=== PATIENT | male | born 1950 | race Two or more races ===

== ENCOUNTER 2022-08-19 14:12 | Inpatient (IN) | payer OTHER ==
[~2022-08-19] VITALS: Ht 162.6 cm; Wt 80.8 kg
[2022-08-19 15:52] LABS: Basophils # (auto) 0.1 10 ^3/uL (0-0.2); Eosinophils # (auto) 0.1 10 ^3/uL (0-0.8); Eosinophils % (auto) 1.5 % (0.0-7.0); Hematocrit 40.7 % (41.0-53.0); Hemoglobin 14.4 g/dL (13.5-17.5); Lymphocytes # (auto) 2.6 10 ^3/uL (0.4-5.4); Lymphocytes % (auto) 30.2 % (10.0-50.0); Mean Corpuscular Hgb Conc. 35.3 g/dL (32.0-36.0); Mean Corpuscular Volume 93.7 fL (80.0-100.0); Monocytes # (auto) 0.5 10 ^3/uL (0-1.3); Monocytes % (auto) 6.2 % (0.0-12.0); Neutrophils # (auto) 5.2 10 ^3/uL (1.6-8.6); Neutrophils % (auto) 61.1 % (37.0-80.0); Nucleated Red Blood Cells % 0.1 %; Red Blood Cells 4.35 10^6/uL (4.5-5.90); Red Cell Distribution Width 14.4 % (11.8-14.3); White Blood Cell 8.5 10^3/uL (4.4-10.8)
[2022-08-19 16:13] LABS: Calcium 9.1 mg/dL (8.5-10.1); Magnesium 2.4 mg/dL (1.6-2.6); Potassium 3.8 mmol/L (3.5-5.1)
[2022-08-19 16:19] LABS: BUN/Creatinine Ratio 10.8 (10.0-20.0); Bilirubin, Total 0.3 mg/dL (0.2-1.0); Total Protein 6.7 g/dL (6.4-8.2)
[2022-08-19] MEDS ORDERED: cefTRIAXone 1GM/50ML D5W 50 ML IV ONE (17:15)
[2022-08-19] MEDS ORDERED: DEXTROSE (50%) 50ML SYRG IV PRN (18:00)
[2022-08-19] MEDS ORDERED: ACETAMINOPHEN 325 MG TAB PO PRN (18:00)
[2022-08-19] MEDS ORDERED: AZITHROMYCIN 500MG/ 250ML 250 ML IV ONE (18:00)
[2022-08-19] MEDS ORDERED: HYDROcodone-ACET 5/325MG TAB PO PRN (18:00)
[2022-08-19] MEDS ORDERED: AMLO1TAB23 PO (18:19)
[2022-08-19] MEDS ORDERED: BISO5TAB44 PO (18:19)
[2022-08-19] MEDS ORDERED: BUSP5TAB51 PO (18:19)
[2022-08-19] MEDS ORDERED: ESCI1TAB36 PO (18:19)
[2022-08-19] MEDS ORDERED: TERA1CAP50 PO (18:19)
[2022-08-19] MEDS ORDERED: LOSA100T58 PO (18:19)
[2022-08-19] MEDS ORDERED: ROSU1TAB12 PO (18:19)
[2022-08-19] MEDS ORDERED: PANTOPRAZOLE 40 MG/10 ML VIAL INJ IV ONE (18:30)
[2022-08-19 18:48] LABS: INR 0.9 (0.9-1.15)
[2022-08-19] MEDS: InsuLIN REG 1unit/0.01ml Soln (100units/ml) SC SCH (22:00)
[2022-08-19 23:00] LABS: Urine Bacteria NONE SEEN /hpf (None Seen); Urine Blood Negative /uL (Negative); Urine Specific Gravity 1.018 (1.001-1.035); Urine WBC 26 /hpf (0 - 3)
[2022-08-19] MEDS: ACCU-CHEK COMFORT CURVE STRIP VI SCH (23:01)
[2022-08-20 05:18] LABS: Basophils # (auto) 0 10 ^3/uL (0-0.2); Basophils % (auto) 0.5 % (0.0-2.0); Eosinophils # (auto) 0.2 10 ^3/uL (0-0.8); Hematocrit 40.4 % (41.0-53.0); Hemoglobin 13.9 g/dL (13.5-17.5); Lymphocytes # (auto) 2.3 10 ^3/uL (0.4-5.4); Lymphocytes % (auto) 32.9 % (10.0-50.0); Mean Corpuscular Hemoglobin 32.7 pg (28.0-32.0); Mean Corpuscular Hgb Conc. 34.4 g/dL (32.0-36.0); Mean Corpuscular Volume 95.2 fL (80.0-100.0); Monocytes # (auto) 0.6 10 ^3/uL (0-1.3); Monocytes % (auto) 8.9 % (0.0-12.0); Neutrophils # (auto) 3.9 10 ^3/uL (1.6-8.6); Neutrophils % (auto) 54.7 % (37.0-80.0); Red Blood Cells 4.25 10^6/uL (4.5-5.90); Red Cell Distribution Width 14.1 % (11.8-14.3); White Blood Cell 7.1 10^3/uL (4.4-10.8)
[2022-08-20 05:31] LABS: Potassium 3.5 mmol/L (3.5-5.1)
[2022-08-20 05:36] LABS: Albumin 3.3 g/dL (3.4-5.0); BUN/Creatinine Ratio 13.6 (10.0-20.0); Bilirubin, Total 0.5 mg/dL (0.2-1.0); Calcium 8.3 mg/dL (8.5-10.1); Total Protein 5.9 g/dL (6.4-8.2)
[2022-08-20] MEDS: ACCU-CHEK COMFORT CURVE STRIP VI SCH ×4 (06:49→21:57)
[2022-08-20] MEDS: InsuLIN REG 1unit/0.01ml Soln (100units/ml) SC SCH ×4 (06:49→21:59)
[2022-08-20] MEDS: amLODIPine BESYLATE 5 MG TAB PO SCH (10:00)
[2022-08-20] MEDS ORDERED: TERAZOSIN HCL 1 MG CAP PO SCH (10:00)
[2022-08-20] MEDS: ATENOLOL 25 MG TAB PO SCH (10:00)
[2022-08-20] MEDS ORDERED: PATIENTS OWN MEDICATION (Losartan Potassium 1 TAB) PO SCH (10:00)
[2022-08-20 10:56] VITALS: BP 144/96
[2022-08-20] MEDS ORDERED: REGADENOSON 0.4 MG/5 ML SYRG IV ONE ×2 (11:00→11:15)
[2022-08-20 12:04] VITALS: BP 167/99
[2022-08-20 12:40] VITALS: BP 167/99
[2022-08-20] MEDS: CITALOPRAM HYDROBR 20 MG TAB PO SCH (13:00)
[2022-08-20] MEDS: LOSARTAN POTASSIUM 50 MG TAB PO SCH (13:07)
[2022-08-20] MEDS: ATORVASTATIN 20 MG TAB PO SCH (13:08)
[2022-08-20] MEDS: MORPHINE SULFATE INJ 2 MG/ml SYRG IV PRN ×2 (14:06→17:26)
[2022-08-20] MEDS: PANTOPRAZOLE 40 MG/10 ML VIAL INJ IV SCH (14:21)
[2022-08-20 17:00] VITALS: BP 153/96
[2022-08-20] MEDS: HYDROcodone-ACET 10/325MG TAB PO PRN (18:32)
[2022-08-20 22:00] VITALS: BP 143/89
[2022-08-21 05:00] VITALS: BP 150/80
[2022-08-21] MEDS: ACCU-CHEK COMFORT CURVE STRIP VI SCH ×4 (06:18→21:05)
[2022-08-21] MEDS: InsuLIN REG 1unit/0.01ml Soln (100units/ml) SC SCH ×4 (06:22→21:21)
[2022-08-21 06:25] LABS: BUN/Creatinine Ratio 12.7 (10.0-20.0); Calcium 8.9 mg/dL (8.5-10.1); Potassium 3.7 mmol/L (3.5-5.1)
[2022-08-21 09:00] VITALS: BP 177/92
[2022-08-21] MEDS: MORPHINE SULFATE INJ 2 MG/ml SYRG IV PRN (10:42)
[2022-08-21] MEDS: CITALOPRAM HYDROBR 20 MG TAB PO SCH (10:46)
[2022-08-21] MEDS: LOSARTAN POTASSIUM 50 MG TAB PO SCH (10:47)
[2022-08-21] MEDS: TERAZOSIN HCL 1 MG CAP PO SCH (10:48)
[2022-08-21] MEDS: ATORVASTATIN 20 MG TAB PO SCH (10:48)
[2022-08-21] MEDS: amLODIPine BESYLATE 5 MG TAB PO SCH (10:49)
[2022-08-21] MEDS: ATENOLOL 25 MG TAB PO SCH (10:50)
[2022-08-21] MEDS: PANTOPRAZOLE 40 MG/10 ML VIAL INJ IV SCH (10:50)
[2022-08-21 13:00] VITALS: BP 145/83
[2022-08-21] MEDS: HYDROcodone-ACET 10/325MG TAB PO PRN ×2 (16:21→20:55)
[2022-08-21 17:00] VITALS: BP 147/89
[2022-08-21 20:00] VITALS: BP 134/78
[2022-08-21 22:00] VITALS: BP 134/78
[2022-08-22 05:00] VITALS: BP 163/86
[2022-08-22] MEDS: ACCU-CHEK COMFORT CURVE STRIP VI SCH ×4 (06:01→21:42)
[2022-08-22] MEDS: InsuLIN REG 1unit/0.01ml Soln (100units/ml) SC SCH ×3 (06:01→21:40)
[2022-08-22] MEDS ORDERED: GLYCOPYRROLATE 0.2 MG/ML 1ML VIAL ONE (07:59)
[2022-08-22] MEDS ORDERED: fentaNYL CITRATE 100 MCG/2 ML VL ONE (07:59)
[2022-08-22] MEDS ORDERED: MIDAZOLAM HCL 2MG/2ML 2ml VIAL (1mg/ml) ONE (07:59)
[2022-08-22] MEDS ORDERED: ROCURONIUM 10MG/ML 10ML VIAL IV ONE ×2 (07:59→08:27)
[2022-08-22] MEDS ORDERED: SODIUM CHLORIDE LOCK 50 ML ONE (07:59)
[2022-08-22] MEDS ORDERED: ONDANSETRON HCL 4 MG/2 ML VIAL ONE (07:59)
[2022-08-22] MEDS ORDERED: DexAMETHasone SOD PHOS 10MG/1ML VIAL INJ ONE (07:59)
[2022-08-22] MEDS ORDERED: HYDROmorphone HCL 2 MG/ML VL/or syr ONE (07:59)
[2022-08-22] MEDS ORDERED: NEOSTIGMINE 1 MG/ML INJ (10mg/10ML VIAL) ONE (07:59)
[2022-08-22] MEDS ORDERED: SUCCINYLCHOLINE CHLORIDE 20 MG/ML 10ML VIAL IV ONE (08:27)
[2022-08-22 08:46] VITALS: BP 154/81
[2022-08-22] MEDS: amLODIPine BESYLATE 5 MG TAB PO SCH (08:57)
[2022-08-22] MEDS: CITALOPRAM HYDROBR 20 MG TAB PO SCH (08:57)
[2022-08-22] MEDS: ATORVASTATIN 20 MG TAB PO SCH (08:57)
[2022-08-22] MEDS: LOSARTAN POTASSIUM 50 MG TAB PO SCH (08:57)
[2022-08-22] MEDS: TERAZOSIN HCL 1 MG CAP PO SCH (08:58)
[2022-08-22] MEDS: PANTOPRAZOLE 40 MG/10 ML VIAL INJ IV SCH (08:58)
[2022-08-22] MEDS ORDERED: MORPHINE SULFATE INJ 2 MG/ml SYRG IV PRN (09:30)
[2022-08-22] MEDS ORDERED: METOCLOPRAMIDE HCL 5MG/ml INJ 2ml VIAL IV PRN (09:30)
[2022-08-22] MEDS ORDERED: ACCU-CHEK COMFORT CURVE STRIP VI ONE (09:30)
[2022-08-22] MEDS ORDERED: HYDROmorphone HCL 2 MG/ML VL/or syr IV PRN ×2 (09:30)
[2022-08-22] MEDS: ATENOLOL 25 MG TAB PO SCH (10:00)
[2022-08-22] MEDS ORDERED: ceFAZolin 1GM/50ML 100 ML IV ONE (10:09)
[2022-08-22] MEDS ORDERED: SUGAMMADEX 200mg/2ml Vial (100MG/ML) IV ONE (11:53)
[2022-08-22] MEDS ORDERED: PROPOFOL 10 MG/ML 20 ML IV ONE ×3 (12:31→13:55)
[2022-08-22] MEDS ORDERED: MINERAL OIL TOPICAL 10ml TOP ONE (13:11)
[2022-08-22] MEDS ORDERED: ONDANSETRON HCL 4 MG/2 ML VIAL IV PRN (14:45)
[2022-08-22] MEDS ORDERED: MILK OF MAGNESIA 30ML SUSP PO PRN (14:45)
[2022-08-22] MEDS ORDERED: DOCUSATE SOD 100 MG CAP PO PRN (14:45)
[2022-08-22] MEDS ORDERED: HYDROcodone-ACET 5/325MG TAB PO PRN (14:45)
[2022-08-22] MEDS ORDERED: ACETAMINOPHEN 325 MG TAB PO PRN (14:45)
[2022-08-22] MEDS ORDERED: MORPHINE SULFATE 4 MG/ML SYR/VIAL IV PRN ×2 (15:00→18:15)
[2022-08-22] MEDS: CYCLOBENZAPRINE HCL 10 MG TAB PO SCH (15:27)
[2022-08-22] MEDS: MORPHINE SULFATE INJ 2 MG/ml SYRG IV PRN ×2 (15:43→16:13)
[2022-08-22] MEDS: ceFAZolin 1GM/50ML 50 ML IV SCH (17:36)
[2022-08-22] MEDS: D5W/SOD CHLO 0.9% 1,000 ML IV SCH (17:37)
[2022-08-22] MEDS: HYDROcodone-ACET 10/325MG TAB PO PRN ×2 (18:36→22:58)
[2022-08-22] MEDS: DOCUSATE SOD 100 MG CAP PO SCH (21:34)
[2022-08-22 22:00] VITALS: BP 151/97
[2022-08-23] VITALS (8 sets, daily range): BP systolic 135–157; BP diastolic 78–89
[2022-08-23] MEDS: D5W/SOD CHLO 0.9% 1,000 ML IV SCH ×2 (00:45→09:37)
[2022-08-23] MEDS: ceFAZolin 1GM/50ML 50 ML IV SCH (01:26)
[2022-08-23] MEDS: HYDROcodone-ACET 10/325MG TAB PO PRN ×4 (03:01→23:56)
[2022-08-23 05:58] LABS: Basophils # (auto) 0 10 ^3/uL (0-0.2); Eosinophils # (auto) 0 10 ^3/uL (0-0.8); Lymphocytes # (auto) 0.8 10 ^3/uL (0.4-5.4); Neutrophils % (auto) 86.7 % (37.0-80.0)
[2022-08-23 06:00] LABS: Hematocrit 36.2 % (41.0-53.0); Hemoglobin 12.8 g/dL (13.5-17.5); Lymphocytes % (auto) 7.7 % (10.0-50.0); Mean Corpuscular Hgb Conc. 35.3 g/dL (32.0-36.0); Mean Corpuscular Volume 99.2 fL (80.0-100.0); Monocytes # (auto) 0.6 10 ^3/uL (0-1.3); Monocytes % (auto) 5.6 % (0.0-12.0); Neutrophils # (auto) 9.5 10 ^3/uL (1.6-8.6); Nucleated Red Blood Cells % 0.1 %; Red Blood Cells 3.65 10^6/uL (4.5-5.90); Red Cell Distribution Width 13.7 % (11.8-14.3); White Blood Cell 10.9 10^3/uL (4.4-10.8)
[2022-08-23 06:04] LABS: Calcium 8.5 mg/dL (8.5-10.1); Potassium 4.1 mmol/L (3.5-5.1)
[2022-08-23] MEDS: CYCLOBENZAPRINE HCL 10 MG TAB PO SCH ×3 (06:06→22:09)
[2022-08-23] MEDS: ACCU-CHEK COMFORT CURVE STRIP VI SCH ×4 (06:22→22:32)
[2022-08-23] MEDS: InsuLIN REG 1unit/0.01ml Soln (100units/ml) SC SCH ×4 (06:23→22:31)
[2022-08-23] MEDS: TERAZOSIN HCL 1 MG CAP PO SCH (09:31)
[2022-08-23] MEDS: DOCUSATE SOD 100 MG CAP PO SCH ×2 (09:31→22:09)
[2022-08-23] MEDS: ATORVASTATIN 20 MG TAB PO SCH (09:32)
[2022-08-23] MEDS: amLODIPine BESYLATE 5 MG TAB PO SCH (09:33)
[2022-08-23] MEDS: CITALOPRAM HYDROBR 20 MG TAB PO SCH (09:33)
[2022-08-23] MEDS: LOSARTAN POTASSIUM 50 MG TAB PO SCH (09:34)
[2022-08-23] MEDS: PANTOPRAZOLE 40 MG/10 ML VIAL INJ IV SCH (09:34)
[2022-08-23] MEDS: ATENOLOL 25 MG TAB PO SCH (09:40)
[2022-08-23] MEDS ORDERED: SENN-105 PO (12:38)
[2022-08-23] MEDS ORDERED: BENZLOZ2 MT (12:38)
[2022-08-23] MEDS ORDERED: HYDR-4902 PO (12:38)
[2022-08-23] MEDS ORDERED: METH4PAK PO (12:38)
[2022-08-23] MEDS ORDERED: DexAMETHasone SOD PHOS 4 MG/1ML SDV INJ IV ONE (13:30)
[2022-08-23] MEDS: THROAT LOZENGES(CEPASTAT) MT PRN (14:17)
[2022-08-24 05:00] VITALS: BP 157/89
[2022-08-24] MEDS: CYCLOBENZAPRINE HCL 10 MG TAB PO SCH ×2 (06:22→14:41)
[2022-08-24] MEDS: ACCU-CHEK COMFORT CURVE STRIP VI SCH ×2 (06:26→11:31)
[2022-08-24] MEDS: InsuLIN REG 1unit/0.01ml Soln (100units/ml) SC SCH ×2 (06:26→11:31)
[2022-08-24 08:00] VITALS: BP_SYST 157; BP_SYST 184; BP_DIAS 105; BP_DIAS 89
[2022-08-24] MEDS: DOCUSATE SOD 100 MG CAP PO SCH (09:50)
[2022-08-24] MEDS: TERAZOSIN HCL 1 MG CAP PO SCH (09:53)
[2022-08-24] MEDS: amLODIPine BESYLATE 5 MG TAB PO SCH (09:54)
[2022-08-24] MEDS: LOSARTAN POTASSIUM 50 MG TAB PO SCH (09:55)
[2022-08-24] MEDS: ATORVASTATIN 20 MG TAB PO SCH (09:57)
[2022-08-24] MEDS: CITALOPRAM HYDROBR 20 MG TAB PO SCH (09:57)
[2022-08-24] MEDS: HYDROcodone-ACET 10/325MG TAB PO PRN (10:03)
[2022-08-24] MEDS: ATENOLOL 25 MG TAB PO SCH (10:04)
[2022-08-24] MEDS: THROAT LOZENGES(CEPASTAT) MT PRN (10:05)
[2022-08-24 12:10] VITALS: BP 168/86
[2022-08-24] MEDS ORDERED: METH4PAK PO (14:55)
[2022-08-24] MEDS ORDERED: HYDR-4902 PO ×2 (14:55→14:58)
== END 2022-08-24 15:15 | disposition home health service (06) | DRG 471 ==
LOC: ER 14:12 → OVERFLOW 18:16 → TELE-WESTW 08-20 12:01 → WEST WING 08-20 18:12 → TELE-WESTW 08-23 09:06
PROVIDERS: ADMIT Nurse Practitioner Family; ATTEND Hospitalist
PROC: 0RB30ZZ Excision of Cervical Vertebral Disc, Open Approach (ICD-10-PCS; 2022-08-22)
PROC: 01N10ZZ Release Cervical Nerve, Open Approach (ICD-10-PCS; 2022-08-22)
PROC: 00NW0ZZ Release Cervical Spinal Cord, Open Approach (ICD-10-PCS; 2022-08-22)
PROC: 4A11X4G Monitoring of Peripheral Nervous Electrical Activity, Intraoperative, External Approach (ICD-10-PCS; 2022-08-22)
PROC: 0RG20A0 Fusion of 2 or more Cervical Vertebral Joints with Interbody Fusion Device, Anterior Approach, Anterior Column, Open Approach (ICD-10-PCS; principal; 2022-08-22 11:25)
DX: M48.02 Spinal stenosis, cervical region (principal); N17.0 Acute kidney failure with tubular necrosis; M47.12 Other spondylosis with myelopathy, cervical region; M50.021 Cervical disc disorder at C4-C5 level with myelopathy; M50.10 Cervical disc disorder with radiculopathy, unspecified cervical region; E11.9 Type 2 diabetes mellitus without complications; E78.5 Hyperlipidemia, unspecified; F17.210 Nicotine dependence, cigarettes, uncomplicated; G89.29 Other chronic pain; I10 Essential (primary) hypertension; I25.10 Atherosclerotic heart disease of native coronary artery without angina pectoris; J44.9 Chronic obstructive pulmonary disease, unspecified; Z90.49 Acquired absence of other specified parts of digestive tract
CPT/HCPCS: 36415; 70450; 71045; 71250; 72040; 74176; 76000; 78452; 80048; 80053; 81001; 82962; 83735; 83880; 83930; 84484; 85025; 85610; 86850; 86900; 86901; 93005; 93017; 93306; 96365; 96366; 96367; 96375; 97163; C9113; G0378; J0330; J0690; J0696; J1100; J1815; J2250; J2405; J2704; J7042

== ENCOUNTER 2022-09-08 12:35 | Emergency (ER) | payer OTHER ==
[~2022-09-08] VITALS: Ht 162.6 cm; Wt 73.4 kg
[~2022-09-08 12:35] MED LIST: AMLO1TAB23 PO; BENZLOZ2 MT; BISO5TAB44 PO; BUSP5TAB51 PO; ESCI1TAB36 PO; HYDR-4902 PO; METH4PAK PO; ROSU1TAB12 PO; SENN-105 PO; TERA1CAP50 PO
[2022-09-08 15:08] LABS: Albumin 4.1 g/dL (3.4-5.0); Calcium 8.7 mg/dL (8.5-10.1); Potassium 3.6 mmol/L (3.5-5.1)
[2022-09-08 15:12] LABS: BUN/Creatinine Ratio 8.3 (10.0-20.0); Bilirubin, Total 0.4 mg/dL (0.2-1.0); Total Protein 7.2 g/dL (6.4-8.2)
[2022-09-08 15:23] LABS: Basophils # (auto) 0.1 10 ^3/uL (0-0.2); Basophils % (auto) 1.1 % (0.0-2.0); Eosinophils # (auto) 0 10 ^3/uL (0-0.8); Eosinophils % (auto) 0.7 % (0.0-7.0); Hematocrit 43.8 % (41.0-53.0); Hemoglobin 14.7 g/dL (13.5-17.5); Lymphocytes # (auto) 1.7 10 ^3/uL (0.4-5.4); Lymphocytes % (auto) 22.7 % (10.0-50.0); Mean Corpuscular Hemoglobin 32.1 pg (28.0-32.0); Mean Corpuscular Hgb Conc. 33.7 g/dL (32.0-36.0); Mean Corpuscular Volume 95.4 fL (80.0-100.0); Monocytes # (auto) 0.6 10 ^3/uL (0-1.3); Monocytes % (auto) 7.4 % (0.0-12.0); Neutrophils # (auto) 5.1 10 ^3/uL (1.6-8.6); Neutrophils % (auto) 68.1 % (37.0-80.0); Nucleated Red Blood Cells % 0.1 %; Red Blood Cells 4.59 10^6/uL (4.5-5.90); Red Cell Distribution Width 13.6 % (11.8-14.3); White Blood Cell 7.5 10^3/uL (4.4-10.8)
[2022-09-08] MEDS ORDERED: ACET-1304 PO (18:37)
[2022-09-08] MEDS ORDERED: PHEN95TA10 PO (18:37)
[2022-09-08 18:42] VITALS: BP 164/98
== END 2022-09-08 18:44 | disposition home or self-care (01) ==
LOC: ER 12:35
DX: S33.5XXA Sprain of ligaments of lumbar spine, initial encounter (principal); R10.9 Unspecified abdominal pain; N20.0 Calculus of kidney; I10 Essential (primary) hypertension; E11.9 Type 2 diabetes mellitus without complications; G89.29 Other chronic pain; J44.9 Chronic obstructive pulmonary disease, unspecified; E78.5 Hyperlipidemia, unspecified; F17.210 Nicotine dependence, cigarettes, uncomplicated; Z90.49 Acquired absence of other specified parts of digestive tract; X58.XXXA Exposure to other specified factors, initial encounter; Y93.89 Activity, other specified; Y92.89 Other specified places as the place of occurrence of the external cause; Y99.8 Other external cause status
CPT/HCPCS: 36415; 74176; 80053; 84484; 85025